=== PATIENT | female | born 1995 | race African-American/Black ===

== ENCOUNTER 2020-12-15 01:05 | Emergency (ER) | payer MEDICAID ==
[~2020-12-15] VITALS: Ht 170.2 cm; Wt 63.0 kg
[2020-12-15 01:24] VITALS: BP 120/61
== END 2020-12-15 04:52 | disposition home or self-care (01) ==
LOC: ER 01:13
DX: O26.892 Other specified pregnancy related conditions, second trimester (principal); Z3A.15 15 weeks gestation of pregnancy; R10.9 Unspecified abdominal pain; W01.0XXA Fall on same level from slipping, tripping and stumbling without subsequent striking against object, initial encounter; Y93.01 Activity, walking, marching and hiking; Y92.9 Unspecified place or not applicable
CPT/HCPCS: 76805; 99284

== ENCOUNTER 2021-05-09 02:56 | Observation (INO) | payer MEDICAID ==
[~2021-05-09] VITALS: Ht 160 cm; Wt 61.2 kg
[2021-05-09 03:29] LABS: BASOPHILS % 0.2 % (0.0-2.0); EOSINOPHILS % 0.1 % (0.0-5.0); HEMATOCRIT. 26.7 % (36.0-48.0); HEMOGLOBIN. 8.8 g/dL (12.0-16.0); LYMPHOCYTES % 17.1 % (20.0-50.0); MEAN CORPUSCULAR HEMOGLOBIN 27.9 pg (28.0-32.0); MEAN CORPUSCULAR VOLUME 85.1 fL (81.0-99.0); MEAN PLATELET VOLUME 7.6 fl (7.4-10.4); MONOCYTES % 6.6 % (2.0-8.0); PLATELET 204 x1000/uL (130-400); RED BLOOD CELL COUNT 3.14 mill/uL (4.2-5.4); RED CELL DISTRIBUTION WIDTH 15.2 % (11.6-14.6)
[2021-05-09] MEDS ORDERED: DEXT 5%/LACTATED RINGERS 1,000 ML IV SCH (07:45)
== END 2021-05-09 12:05 | disposition home or self-care (01) ==
LOC: 8 EST LDRP 02:56
PROVIDERS: ADMIT Specialist; ATTEND Specialist
DX: O26.893 Other specified pregnancy related conditions, third trimester (principal); R10.9 Unspecified abdominal pain; O99.891 Other specified diseases and conditions complicating pregnancy; M54.9 Dorsalgia, unspecified; Z3A.36 36 weeks gestation of pregnancy; Y04.0XXA Assault by unarmed brawl or fight, initial encounter; Y93.89 Activity, other specified; Y92.89 Other specified places as the place of occurrence of the external cause; Y99.8 Other external cause status
CPT/HCPCS: 36415; 59025; 76805; 76817; 76818; 85025; G0378; G0379